=== PATIENT | male | born 1995 ===

== ENCOUNTER 2020-07-11 15:19 | Outpatient (REF) | payer BC, SELFPAY ==
[2020-07-14 14:16] LABS: SARS-CoV-2 RNA Undetected (Undetected); SARS-CoV-2 Specimen Source Nasopharynx
== END 2020-07-11 15:39 ==
LOC: NCHCN 15:19
PROVIDERS: PCP Family Medicine; Visit Provider Family Medicine
DX: Z11.59 Encounter for screening for other viral diseases (principal)
CPT/HCPCS: U0003